=== PATIENT | female | born 1990 | race Caucasian/White ===

== ENCOUNTER 2018-01-13 15:03 | Emergency (ER) | payer SELFPAY ==
[~2018-01-13] VITALS: Ht 152.4 cm; Wt 60.0 kg
[~2018-01-13 15:03] MED LIST: PREN-142 PO
[2018-01-13 17:29] LABS: BASOPHILS % 0.3 % (0.0-2.0); EOSINOPHILS % 0.6 % (0.0-5.0); HEMOGLOBIN. 13.5 g/dL (12.0-16.0); LYMPHOCYTES % 10.7 % (20.0-50.0); MEAN CORPUSCULAR HEMOGLOBIN 28.6 pg (28.0-32.0); MEAN CORPUSCULAR VOLUME 84.8 fL (81.0-99.0); MEAN PLATELET VOLUME 10.5 fl (7.4-10.4); MONOCYTES % 3.9 % (2.0-8.0); NEUTROPHILS % 84.5 % (40.0-76.0); PLATELET 342 x1000/uL (130-400); RED BLOOD CELL COUNT 4.71 mill/uL (4.2-5.4); RED CELL DISTRIBUTION WIDTH 14.5 % (11.6-14.6)
[2018-01-13 17:41] LABS: CHLORIDE 104 mEq/L (98-107)
[2018-01-13 18:17] LABS: *AMPHETAMINES SCREEN URINE NEGATIVE (NEGATIVE); *BARBITURATES SCREEN URINE NEGATIVE (NEGATIVE); *BENZODIAZEPINES SCREEN URINE NEGATIVE (NEGATIVE); *COCAINE SCREEN URINE NEGATIVE (NEGATIVE); METHADONE URINE SCREEN NEGATIVE (NEGATIVE); OPIATES URINE SCREEN NEGATIVE (NEGATIVE); PHENCYCLIDINE URINE SCREEN NEGATIVE (NEGATIVE)
[2018-01-13 18:27] LABS: CANNABINOID URINE SCREEN PRESUMTIVE POSITIVE (NEGATIVE)
[2018-01-13 19:07] VITALS: BP 123/77
== END 2018-01-13 19:15 | disposition home or self-care (01) ==
LOC: ER 15:03
DX: S50.12XA Contusion of left forearm, initial encounter (principal); S09.8XXA Other specified injuries of head, initial encounter; R41.2 Retrograde amnesia; Z88.0 Allergy status to penicillin; V49.40XA Driver injured in collision with unspecified motor vehicles in traffic accident, initial encounter; Y93.89 Activity, other specified; Y92.89 Other specified places as the place of occurrence of the external cause; Y99.8 Other external cause status
CPT/HCPCS: 36415; 71045; 73090; 80048; 80305; 81025; 99285

== ENCOUNTER 2021-11-28 05:02 | Emergency (ER) | payer MEDICAID ==
[~2021-11-28] VITALS: Ht 152.4 cm; Wt 61.0 kg
[~2021-11-28 05:02] MED LIST changes: -PREN-142 PO; +PRENATAL ONE T1 EACH PO
[2021-11-28 05:13] VITALS: BP 116/72
== END 2021-11-28 07:12 | disposition home or self-care (01) ==
LOC: ER 05:17
DX: F41.9 Anxiety disorder, unspecified (principal); Z88.0 Allergy status to penicillin
CPT/HCPCS: 99283